=== PATIENT | female | born 1955 | race Caucasian/White ===

== ENCOUNTER 2018-12-14 12:58 | Day surgery (SDC) | payer OTHER ==
[~2018-12-14] VITALS: Ht 154.9 cm; Wt 58.3 kg
[~2018-12-14 12:58] MED LIST: ASPI-817 PO; ATOR40TA68 PO; DOCU-221 PO; FER325 PO; GLIM2TAB PO; LOSARTAN PO; METF100010 PO; SITA100T11 PO; VIT D3
[2018-12-14 13:55] VITALS: Ht 154.9 cm; Wt 58.3 kg
[2018-12-14 15:45] VITALS: BP 162/71; PULSE 83; RESP 18
[2018-12-14] MEDS ORDERED: PROPOFOL 200 MG INJ ONE (15:50)
[2018-12-14] MEDS ORDERED: LIDOCAINE 100 MG SYRINGE ONE (15:51)
[2018-12-14] MEDS ORDERED: PROPOFOL 20 ML ONE (15:51)
[2018-12-14 16:21] VITALS: BP 94/51; PULSE 74; RESP 15
[2018-12-14 16:33] VITALS: BP 118/58; PULSE 74; RESP 21
[2018-12-14 16:52] VITALS: BP 117/59; PULSE 70; RESP 18
== END 2018-12-14 18:06 | disposition home or self-care (01) ==
LOC: GIL 12:58
PROVIDERS: ATTEND Internal Medicine Gastroenterology
DX: Z12.11 Encounter for screening for malignant neoplasm of colon (principal); K64.9 Unspecified hemorrhoids; E11.9 Type 2 diabetes mellitus without complications; I10 Essential (primary) hypertension; Z79.84 Long term (current) use of oral hypoglycemic drugs
CPT/HCPCS: 45378; 82962; J2001; Z7610